=== PATIENT | male | born 1985 | race African-American/Black ===

== ENCOUNTER 2018-06-19 02:40 | Emergency (ER) | payer OTHER ==
[~2018-06-19] VITALS: Ht 167.6 cm; Wt 74.8 kg
[2018-06-19 02:40] VITALS: BP 128/75
[2018-06-19] MEDS ORDERED: KETOROLAC 60 MG/2 ML VIAL IM ONE (03:35)
[2018-06-19 03:50] VITALS: BP 130/74
== END 2018-06-19 03:50 | disposition home or self-care (01) ==
LOC: MED 02:40
DX: S20.212A Contusion of left front wall of thorax, initial encounter (principal); F17.200 Nicotine dependence, unspecified, uncomplicated; W22.8XXA Striking against or struck by other objects, initial encounter; Y93.89 Activity, other specified; Y92.89 Other specified places as the place of occurrence of the external cause; Y99.8 Other external cause status
CPT/HCPCS: 71101; 81002; 96372; 99284; J1885

== ENCOUNTER 2020-09-12 09:32 | Emergency (ER) | payer OTHER ==
[~2020-09-12] VITALS: Ht 170.2 cm; Wt 74.4 kg
[2020-09-12 09:37] VITALS: BP 134/80
--- NOTE | 2020-09-12 09:38 | NUR ---
Patient to bed 7. RN evaluating patient at bedside.
--- NOTE | 2020-09-12 09:52 | NUR ---
Pt c/o right ankle pain x 2 days s/p landing on ankle while jumping on trampoline. No deformities noted at this time, no swelling noted. Pedal pulses present bilaterally. CMS+. medhx: denies
--- NOTE | 2020-09-12 09:56 | NUR ---
teletype technician at bedside.
--- NOTE | 2020-09-12 11:50 | NUR ---
PT PLACED IN 4" FIBERGLASS FABIRCATED POSTERIOR SHORT SPLINT ON THE RIGHT FOOT. PT CMS WNL BEFORE AND AFTER. PT ALSO GIVEN CRUTCHES, CRUTCHES ADJUSTED TO PT HIEGHT. PT GIVEN ONE ON ONE DEMENSTRATION AND SHOWED PROPER USE OF CRUTCHES. PT STATES THEY FELT COMFORTABLE WHILE USING CRUTCHES AND HAD NO FURTHER QUESTIONS. ACCOUNTS PAYABLE TECHNICIAN NOTIFIED.
[2020-09-12 11:59] VITALS: BP 134/80
== END 2020-09-12 11:59 | disposition home or self-care (01) ==
LOC: MED 09:32
DX: S82.51XA Displaced fracture of medial malleolus of right tibia, initial encounter for closed fracture (principal); F17.290 Nicotine dependence, other tobacco product, uncomplicated; X58.XXXA Exposure to other specified factors, initial encounter; Y93.44 Activity, trampolining; Y92.89 Other specified places as the place of occurrence of the external cause; Y99.8 Other external cause status
CPT/HCPCS: 29515; 73610; 99283